=== PATIENT | male | born 1945 | race Caucasian/White ===

== ENCOUNTER → 2019-05-01 | Outpatient (CLI) | payer MEDICARE ==
--- NOTE | 2019-05-01 09:34 | Diagnostic Imaging Report ---
INDICATION: Right hand pain. FINDINGS: Three views of the right hand show no fracture, dislocation or other acute abnormalities. IMPRESSION: Negative right hand. Dictated by: Dictated on workstation # [id number]
== END ==
LOC: RAD FS 09:20
PROVIDERS: ATTEND Family Medicine
DX: M79.641 Pain in right hand (principal)
CPT/HCPCS: 73130

== ENCOUNTER → 2021-08-03 | Outpatient (CLI) | payer MEDICARE ==
--- NOTE | 2021-08-03 14:10 | Diagnostic Imaging Report ---
INDICATION: Low back pain with leg radiculopathy. EXAM: Lumbar spine AP and lateral views of the lumbar spine show spondylosis with osteophytes forming anteriorly and laterally at multiple levels. There are no compression fractures. There is no misalignment. The disc spaces are fairly well-maintained. IMPRESSION: 1. Spondylosis deformans. No acute abnormalities are seen. Dictated by: Dictated on workstation # [id number]
== END ==
LOC: RAD FS 13:36
PROVIDERS: ATTEND Nurse Practitioner Family
DX: M47.26 Other spondylosis with radiculopathy, lumbar region (principal)
CPT/HCPCS: 72100

== ENCOUNTER → 2021-08-19 | Outpatient (CLI) | payer MEDICARE ==
--- NOTE | 2021-08-19 10:33 | Diagnostic Imaging Report ---
INDICATION: Left side rib pain PA chest and 2 views of the left ribs are obtained. There are no displaced rib fractures. Lungs are clear. There are no effusions or pneumothoraces. IMPRESSION: Unremarkable chest and left ribs. Dictated by: Dictated on workstation # [id number]
== END ==
LOC: RAD FS 09:07
PROVIDERS: ATTEND Family Medicine
DX: R07.81 Pleurodynia (principal)
CPT/HCPCS: 71101

== ENCOUNTER 2021-11-14 10:39 | Emergency (ER) | payer MEDICARE ==
[~2021-11-14] VITALS: Ht 165 cm; Wt 72.0 kg
[2021-11-14] MEDS ORDERED: CEPH500T PO (11:34)
--- NOTE | 2021-11-14 11:34 | ED Integumentary General ---
General Chief Complaint: Laceration Stated Complaint: RT HAND LAC Nursing Triage Note: PT CUT THE LATERAL SIDE OF HIS RIGHT HAND ON AN OLD PIECE OF WIRE. PT HAS A U-SHAPED WELL APPROXIMATED LACERATION. Source: patient, family () Exam Limitations: no limitations History of Present Illness Date Seen by Provider: Nov 14, 2021 Time Seen by Provider: 10:54 Initial Comments Patient is a 76-year-old male who presents to the emergency department today with a chief complaint of stellate laceration to the medial aspect of his right hand. 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 As he was driving the post his hand came down on the barbed wire cutting the medial aspect along the fifth metatarsal. He had immediate pain and bleeding. He states his last tetanus shot was within the last 3 years. He denies any numbness tingling or weakness to the fifth finger. No other complaints of illness or injury. He is not a diabetic. All other review of systems reviewed and negative except as stated. Timing/Duration: just prior to arrival Severity: moderate Location: hands Possible Cause: other (trauma) Associated Symptoms: denies symptoms Allergies and Home Medications Patient Home Medication List Home Medication List Reviewed: Yes Cephalexin (Cephalexin) 500 Mg Tablet, 500 MG PO TID Prescribed by: REJI ROBBINS on 11/14/21 1134 Review of Systems Review of Systems Constitutional: see HPI Respiratory: no symptoms reported Cardiovascular: no symptoms reported Gastrointestinal: no symptoms reported Genitourinary: no symptoms reported Musculoskeletal: no symptoms reported Skin: other (laceration right hand) Past Heregyv-Ccxdye-Ycjupt Hx Patient Social History Tobacco Use?: No Use of E-Cig and/or Vaping dev: No Substance use?: No Alcohol Use?: Yes Alcohol type: Beer Alcohol Frequency: Daily Pt feels they are or have been: No Immunizations Up To Date First/Initial COVID19 Vaccinat: 2020 Second COVID19 Vaccination Dany: 2020 COVID19 Vaccine Apprentice: SEAMUS Physical Exam Vital Signs Vital Signs - First Documented 11/14/21 10:39 Temp 36.1 Pulse 64 Resp 18 B/P (MAP) 131/85 (100) Pulse Ox 97 O2 Delivery Room Air Capillary Refill : Less Than 3 Seconds General Appearance: WD/WN, no apparent distress HEENT: PERRL/EOMI Cardiovascular: regular rate, rhythm Respiratory: lungs clear, normal breath sounds, no respiratory distress, no accessory muscle use Extremities: normal range of motion, non-tender, normal capillary refill Neurologic/Psychiatric: alert, normal mood/affect, oriented x 3 Skin Problem Location: upper extremities (right hand - medial) Skin Problem Character: other (Patient has a flap-like and stellate laceration to the medial aspect just at the midportion of the right fifth metacarpall. The wound in total is approximately 3-1/2 cm in length. Minimal bleeding noted.) Procedures/Interventions Wound Location: Upper Extremities Other Wound Location right medial hand along the 5th metacarpal Wound Length (cm): 4.5 Wound's Depth, Shape: superficial, irregular, flap, stellate Wound Explored: clean Irrigated w/ Saline (ccs): 250 Betadine Prep?: No Anesthesia: 1% Lidocaine Volume Anesthetic (ccs): 5 Wound Debrided: minimal Suture: Ethlion Suture Size: 4-0 Number of Sutures: 8 Layer Closure?: 2 Number Deep Layer Sutures: 1 Sterile Dressing Applied?: Yes Progress 2 complex course stitches were placed. The rest were superficial interrupted sutures in the skin x6. 1 subcutaneous 4-0 Vicryl stitch was placed to help approximate wound margins Progress/Results/Core Measures Results/Orders Vital Signs/I&O 11/14/21 11/14/21 10:39 11:36 Temp 36.1 36.1 Pulse 64 64 Resp 18 18 B/P (MAP) 131/85 (100) 131/85 Pulse Ox 97 97 O2 Delivery Room Air Room Air Blood Pressure Mean: 100 Progress Progress Note : Time: 11:10 Progress Note Complex stellate and flap-like laceration over the medial portion of the right hand along the fifth metatarsal. This required complex closure with 2 corner stitches and 1 Vicryl subcutaneous stitch. Wound margins approximated well. Hemostasis was achieved. Distal neurovascularly intact to the fifth finger. Tendons intact. Patient is placed on a little prophylactic antibiotic, Keflex for 7 days due to the dirty nature of the laceration. He was cleansed thoroughly and soaked for 10 to 15 minutes and a Betasept and saline solution. He tolerated closure well. Return precautions provided. Both he and his verbalized understanding. All questions are sought and answered. Departure Impression Primary Impression: Laceration of right hand Qualified Codes: S61.411A - Laceration without foreign body of right hand, initial encounter Disposition: 01 HOME, SELF-CARE Condition: Stable Departure-Patient Inst. Decision time for Depature: 11:32 Referrals: JEAN CARLOS HASKINS MD (PCP) Primary Care Physician Patient Instructions: Laceration Repair With Stitches ED Add. Discharge Instructions: Keep the bandage in place until this evening. Then you may take it off wash as normal and reapply with triple antibiotic ointment and a dry dressing. Use triple antibiotic ointment daily for 2 to 3 days. Keep a dry dressing on the wound. Wash it daily with a gentle soap and water. The stitches will need to come out in 12 to 14 days. [id number] Tylenol or ibuprofen as needed for pain. If the wound becomes red, swollen, drains pus or becomes very painful please come back to the emergency room for reevaluation. Take the antibiotics as directed for the next 7 days. Follow-up with your primary care doctor as scheduled./ needed. Scripts Cephalexin (Cephalexin) 500 Mg Tablet 500 MG PO TID for 7 Days, #21 TAB Prov: REJI ROBBINS MD 11/14/21 Images Extremities-Upper 1 - Laceration REJI ROBBINS MD Nov 14, 2021 11:34
[2021-11-14 11:36] VITALS: BP 131/85
== END 2021-11-14 11:37 | disposition home or self-care (01) ==
LOC: EDUNIT# 10:39 → ER FS 10:41
DX: S61.411A Laceration without foreign body of right hand, initial encounter (principal); S61.216A Laceration without foreign body of right little finger without damage to nail, initial encounter; W45.8XXA Other foreign body or object entering through skin, initial encounter
CPT/HCPCS: 12042

== ENCOUNTER 2021-11-24 09:45 | Emergency (ER) | payer MEDICARE ==
[~2021-11-24 09:45] MED LIST: CEPH500T PO
== END 2021-11-24 10:08 | disposition home or self-care (01) ==
LOC: EDUNIT# 09:45 → ER FS 09:46
DX: Z48.02 Encounter for removal of sutures (principal)